=== PATIENT | female | born 1950 | race Caucasian/White ===

== ENCOUNTER 2022-03-29 14:18 | Outpatient (REF) | payer MEDICARE, SELFPAY ==
[2022-03-29 16:48] LABS: Abs Immature Grans 0.02 10^3/uL (0.0-0.06); Absolute Basophil Count 0.02 10^3/uL (0.0-0.2); Absolute Eosinophil Count 0.12 10^3/uL (0.0-0.7); Absolute Lymphocyte Count 1.39 10^3/uL (1.2-3.4); Absolute Monocyte Count 0.52 10^3/uL (0.1-0.8); Absolute Neutrophil Count 5.06 10^3/uL (1.2-6.7); Basophils % 0.3; Eosinophils % 1.7; HCT 43.8 % (36.0-46.0); HGB 14.1 g/dL (11.2-15.7); Immature Grans % 0.3; Lymphocytes % 19.5; MCH 31.5 pg (27.0-33.0); MCHC 32.2 % (32.0-36.0); MCV 98 fL (80-95); MPV 11.6 fL (8.0-11.0); Monocytes % 7.3; Neutrophils % 70.9; Platelet Count 238 10^3/uL (130-400); RBC 4.48 10^6/uL (3.93-5.22); RDW 12.8 % (11.7-14.6); RDW-SD 45.9 fL; WBC 7.13 10^3/uL (4.4-10.8)
[2022-04-01 10:39] LABS: IgE 16 IU/mL (<158)
== END 2022-03-29 14:19 | disposition home or self-care (01) ==
LOC: LBN 14:18
PROVIDERS: PCP Neuromusculoskeletal Medicine & OMM; Visit Provider Student in an Organized Health Care Education/Training Program
DX: J45.909 Unspecified asthma, uncomplicated (principal)
CPT/HCPCS: 82785; 85025

== ENCOUNTER 2023-05-02 21:21 | Outpatient (REF) | payer MEDICARE, SELFPAY ==
[2023-05-02 19:20] LABS: HGB 13.9 g/dL (11.2-15.7); MCH 32.5 pg (27.0-33.0); MCHC 33.9 % (32.0-36.0); MCV 96 fL (80-95); MPV 11.4 fL (8.0-11.0); Platelet Count 223 10^3/uL (130-400); RBC 4.28 10^6/uL (3.93-5.22); RDW 12.7 % (11.7-14.6); WBC 8.01 10^3/uL (4.4-10.8)
[2023-05-02 19:25] LABS: Anion Gap 9.7 mmol/L (3-11); BUN 18 mg/dL (7-18); CO2 26.3 mmol/L (21.0-32.0); CREATININE 0.8 mg/dL (0.55-1.02); Calcium 9.6 mg/dL (8.5-10.1); Chloride 104 mmol/L (98-107); Estimated GFR 78.24 (mL/min/1.73m2); Glucose 97 mg/dL (74-106); Potassium 3.9 mmol/L (3.5-5.1); Sodium 140 mmol/L (136-145)
== END 2023-05-02 21:22 | disposition home or self-care (01) ==
LOC: NCHCN 21:21
PROVIDERS: PCP Neuromusculoskeletal Medicine & OMM; Visit Provider Nurse Practitioner Family
DX: R23.8 Other skin changes (principal)
CPT/HCPCS: 80048; 85027

== ENCOUNTER 2023-06-07 15:35 | Outpatient (REF) | payer MEDICARE, SELFPAY ==
[2023-06-07 20:24] LABS: HCT 42.8 % (36.0-46.0); HGB 14.5 g/dL (11.2-15.7); MCH 31.9 pg (27.0-33.0); MCHC 33.9 % (32.0-36.0); MCV 94 fL (80-95); MPV 9.7 fL (8.0-11.0); Platelet Count 331 10^3/uL (130-400); RBC 4.54 10^6/uL (3.93-5.22); RDW 12.2 % (11.7-14.6); RDW-SD 42.4 fL
[2023-06-07 20:32] LABS: Anion Gap 9.7 mmol/L (3-11); BUN 23 mg/dL (7-18); CO2 26.3 mmol/L (21.0-32.0); Calcium 9.2 mg/dL (8.5-10.1); Chloride 104 mmol/L (98-107); Estimated GFR 59.49 (mL/min/1.73m2); Glucose 106 mg/dL (74-106); Potassium 4.4 mmol/L (3.5-5.1); Sodium 140 mmol/L (136-145)
== END 2023-06-07 15:36 | disposition home or self-care (01) ==
LOC: NCHCN 15:35
PROVIDERS: PCP Neuromusculoskeletal Medicine & OMM; Visit Provider Nurse Practitioner Family
DX: R53.83 Other fatigue (principal)
CPT/HCPCS: 80048; 85027

== ENCOUNTER 2024-05-28 10:09 | Outpatient (REF) | payer MEDICARE, SELFPAY ==
[2024-05-28 19:38] LABS: ALT 24 U/L (14-59); AST 15 U/L (15-37); Albumin 3.7 g/dL (3.4-5.0); Alkaline Phosphatase 80 U/L (46-116); Anion Gap 8.9 mmol/L (3-11); BUN 20 mg/dL (7-18); Bilirubin, Total 0.29 mg/dL (0.2-1.0); CO2 27.1 mmol/L (21.0-32.0); CREATININE 0.9 mg/dL (0.55-1.02); Calcium 8.9 mg/dL (8.5-10.1); Chloride 108 mmol/L (98-107); Estimated GFR 67.08 (mL/min/1.73m2); Glucose 104 mg/dL (74-106); Potassium 4.1 mmol/L (3.5-5.1); Sodium 144 mmol/L (136-145); Total Protein 6.9 g/dL (6.4-8.2)
[2024-05-28 20:44] LABS: Abs Immature Grans 0.04 10^3/uL (0.0-0.06); Absolute Basophil Count 0.03 10^3/uL (0.0-0.2); Absolute Monocyte Count 0.53 10^3/uL (0.1-0.8); Basophils % 0.2 %; Eosinophils % 3.6 %; HCT 40.7 % (36.0-46.0); HGB 13.2 g/dL (11.2-15.7); Immature Grans % 0.3 %; Lymphocytes % 6.3 %; MCH 31.7 pg (27.0-33.0); MCHC 32.4 % (32.0-36.0); MCV 98 fL (80-95); MPV 11.4 fL (8.0-11.0); Monocytes % 4.2 %; Neutrophils % 85.4 %; Platelet Count 211 10^3/uL (130-400); RBC 4.16 10^6/uL (3.93-5.22); RDW 13.2 % (11.7-14.6); WBC 12.61 10^3/uL (4.4-10.8)
[2024-05-28 20:45] LABS: Absolute Eosinophil Count 0.45 10^3/uL (0.0-0.7); Absolute Lymphocyte Count 0.79 10^3/uL (1.2-3.4); Absolute Neutrophil Count 10.77 10^3/uL (1.2-6.7)
[2024-05-31 08:55] LABS: C3 Complement 166 mg/dL (81-157); C4 Complement 32 mg/dL (13-39)
== END 2024-05-28 10:10 | disposition home or self-care (01) ==
LOC: NCHCN 10:09
PROVIDERS: PCP Neuromusculoskeletal Medicine & OMM; Visit Provider Nurse Practitioner Family
DX: R23.3 Spontaneous ecchymoses (principal)
CPT/HCPCS: 80053; 85025; 86160

== ENCOUNTER 2025-01-28 13:13 | Outpatient (REF) | payer MEDICARE, SELFPAY ==
[2025-01-28 21:10] LABS: Folate 11.6 ng/mL (8.6-20.0); Vitamin B12 267 pg/mL (193-986)
== END 2025-01-28 13:14 | disposition home or self-care (01) ==
LOC: NCHCN 13:13
PROVIDERS: PCP Neuromusculoskeletal Medicine & OMM; Visit Provider Nurse Practitioner Family
DX: K14.6 Glossodynia (principal)
CPT/HCPCS: 87102; 87206; 82607; 82746